=== PATIENT | female | born 1970 | race Caucasian/White ===

== ENCOUNTER 2016-05-12 13:41 | Emergency (ER) | payer SELFPAY ==
[2016-05-12 13:59] VITALS: RESP 18
--- NOTE | 2016-05-12 15:30 | EDPHY ---
H & P Stated Complaint: psych eval, crisis intervention Time Seen by Provider: 05/12/16 14:07 HPI/ROS: CHIEF COMPLAINT: anxiety HISTORY OF PRESENT ILLNESS: 46-year-old female presents emergency department complaining of anxiety and feeling very overwhelmed. Patient has multiple life stressors, just lost her job in [place], packed up her car and drove to [place] where her family lives. She arrived 2 days ago. Patient has a history of depression and is taking Celexa. She reports she just started taking a medication to help with alcohol cravings that was prescribed to her by a doctor in [place]. Patient denies suicidal ideations, homicidal ideations, auditory or visual hallucinations. She is requesting resources for mental health. Patient reports she was diagnosed with bacterial vaginosis and given a prescription for Flagyl that she has not started as she does not want to stop drinking. Patient denies history of alcohol withdrawals. REVIEW OF SYSTEMS: A comprehensive 10 point review of systems is otherwise negative aside from elements mentioned in the history of present illness. Source: Patient Exam Limitations: No limitations - Personal History LMP (Females 10-55): 15-21 Days Ago Current Tetanus Diphtheria and Acellular Pertussis (TDAP): Yes - Medical/Surgical History Other PMH: bacterial vaginosis, depression - Social History Smoking Status: Never smoked - Physical Exam Exam: GEN: Awake, alert, oriented, tearful RESP: nl resp effort MSK: Normal appearing SKIN: No break in skin or rash on exposed skin Psych: Tearful, denies suicidal ideation, homicidal ideation, auditory and visual hallucinations, no tongue fasciculations, no tremors, normal gait Constitutional: Initial Vital Signs Temperature (C) 36.7 C 05/12/16 13:54 Heart Rate 112 H 05/12/16 13:54 Respiratory Rate 18 05/12/16 13:54 Blood Pressure 134/91 H 05/12/16 13:54 O2 Sat (%) 93 05/12/16 13:54 O2 Delivery Mode Room Air Allergies/Adverse Reactions: No Known Allergies Allergy (Unverified 05/12/16 13:51) Home Medications: Medication Instructions Recorded Celexa 05/12/16 Medical Decision Making ED Course/Re-evaluation: welding manager has spoken with the patient and given her resources for outpatient mental health. Patient is instructed to return for any suicidal thoughts, other questions or concerns. Patient is comfortable with this plan. Departure - Departure Disposition: Home, Routine, Self-Care Clinical Impression: Anxiety Depression Qualifiers: Depression Type: unspecified Qualifier Code: (F32.9) Major depressive disorder , single episode, unspecified Condition: Good Instructions: Depression (ED), Anxiety (ED) Additional Instructions: 1. Please follow-up with the mental health resources provided in the ED today. 2. [facility] does operate a 24 psychiatric crisis unit located at [address] [place] [address]. The telephone number for the 24 hour crisis center is [phone]. 3. Please return to the ED if you are feeling suicidal, having thoughts of harming yourself/others or should you feel unsafe or have worsening symptoms. Take all of your medications as prescribed. Referrals: [facility] [Outside] - As per Instructions [facility] [Outside] - As per Instructions
[2016-05-12 15:36] VITALS: BP 120/62; PULSE 82; TEMP 97.9; O2SAT 96
== END 2016-05-12 15:55 | disposition home or self-care (01) ==
DX: F41.8 Other specified anxiety disorders (principal)